=== PATIENT | female | born 2000 | race Caucasian/White ===

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

== ENCOUNTER 2022-04-01 16:40 | Emergency (ER) | payer MEDICAID, SELFPAY ==
[2022-04-01 17:35] VITALS: BP 120/83; PULSE 82; RESP 18; TEMP 36.5; O2SAT 98
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
[2022-04-01] MEDS: dexamethasone 4 mg Tablet 8 MG PO (19:20)
[2022-04-01] MEDS: iohexol 350 mg/mL 500 mL Btl (per mL) IV (20:33)
== END 2022-04-01 19:25 | disposition home or self-care (01) ==
PROVIDERS: Emergency Provider Nurse Practitioner Family; PCP Nurse Practitioner Family
DX: S19.9XXA Unspecified injury of neck, initial encounter (principal); Y04.8XXA Assault by other bodily force, initial encounter
CPT/HCPCS: 70498; 99285; J8540; Q9967

== ENCOUNTER → 2023-04-29 14:02 | Outpatient (BNVA) | payer MEDICAID, SELFPAY | PROVIDERS: PCP Nurse Practitioner Family; Visit Provider Nurse Practitioner Women's Health | DX: Z32.00 Encounter for pregnancy test, result unknown (principal) | CPT/HCPCS: 81025 ==

== ENCOUNTER → 2023-05-14 12:39 | Outpatient (BNVA) | payer MEDICAID, SELFPAY | PROVIDERS: PCP Nurse Practitioner Family; Visit Provider Obstetrics & Gynecology | DX: Z36.87 Encounter for antenatal screening for uncertain dates (principal) | CPT/HCPCS: 76817 ==

== ENCOUNTER → 2023-05-20 09:04 | Outpatient (BNVA) | payer MEDICAID, SELFPAY | PROVIDERS: PCP Nurse Practitioner Family; Visit Provider Nurse Practitioner Women's Health | DX: Z34.90 Encounter for supervision of normal pregnancy, unspecified, unspecified trimester (principal) | CPT/HCPCS: 80307; 84315; 84439; 84443; 84481; 85025; 86592; 86762; 86803; 86850; 86900; 87086; 87340; 87491; 87591; 87806 ==

== ENCOUNTER 2024-12-06 15:13 | Outpatient (CLI) | payer MEDICAID, SELFPAY ==
--- NOTE | 2024-12-06 15:25 | XRR_ITS ---
PROCEDURE INFORMATION: Exam: XR Right Hand Exam date and time: 12/06/2024 3:30 PM Age: 24 years old Clinical indication: Injury or trauma; Blunt trauma (contusions or hematomas); Hand; Right; Injury details: Fall while skating; Prior surgery; Surgery date: 6+ months; Surgery type: Surgery in carpal bones; Additional info: Hand pain right TECHNIQUE: Imaging protocol: Radiologic exam of the right hand. Views: 3 or more views. COMPARISON: CR XR hand RT min 3V* [id number] 10/07/2018 4:21 PM FINDINGS: Bones/joints: Normal. Soft tissues: Normal. XR/XR hand RT min 3V* [id number] IMPRESSION: No acute findings. See today's right wrist report.
--- NOTE | 2024-12-06 15:26 | XRR_ITS ---
PROCEDURE INFORMATION: Exam: XR Right Wrist Exam date and time: 12/06/2024 3:30 PM Age: 24 years old Clinical indication: Injury or trauma; Blunt trauma (contusions or hematomas); Wrist; Right; Injury details: Fall while skating; Prior surgery; Surgery date: 6+ months; Surgery type: Surgery in carpal bones; Additional info: Wrist pain right TECHNIQUE: Imaging protocol: Radiologic exam of the right wrist. Views: 1 or 2 views. COMPARISON: CR XR wrist RT min 3V* [id number] 12/23/2018 10:49 AM FINDINGS: Bones/joints: There is a screw traversing an old navicular fracture which has healed. No appreciable deformity. No acute findings. Joint spaces are unremarkable. Soft tissues: Normal. XR/XR wrist RT 2V [id number] IMPRESSION: Nonacute findings.
== END 2024-12-06 15:14 | disposition home or self-care (01) ==
PROVIDERS: PCP Nurse Practitioner Family; Visit Provider Nurse Practitioner Family
DX: M25.531 Pain in right wrist (principal); M79.641 Pain in right hand
CPT/HCPCS: 73100; 73130